=== PATIENT | female | born 1990 | race Caucasian/White ===

== ENCOUNTER 2018-01-30 03:50 | Emergency (ER) | payer OTHER ==
[~2018-01-30] VITALS: Ht 180.3 cm; Wt 88.5 kg
[2018-01-30 04:41] LABS: BASOPHILS # (AUTO) 0.07 x10^3/uL (0-0.1); BASOPHILS % (AUTO) 1 % (0-1); EOSINOPHILS # (AUTO) 0.11 x10^3/uL (0-0.4); EOSINOPHILS % (AUTO) 1 % (1-7); LYMPHOCYTES # (AUTO) 2.75 x10^3/uL (1-3.4); LYMPHOCYTES % (AUTO) 25 % (22-44); MD NO; MEAN CORPUSCULAR HEMOGLOBIN 28.2 pg (27.0-34.8); MEAN CORPUSCULAR HGB CONC 34.3 g/dL (32.4-35.8); MEAN CORPUSCULAR VOLUME 82.4 fL (80-100); MEAN PLATELET VOLUME 6.8 fL (7.4-10.4); MONOCYTES # (AUTO) 0.96 x10^3/uL (0.2-0.8); MONOCYTES % (AUTO) 9 % (2-9); NEUTROPHILS # (AUTO) 7.31 x10^3/uL (1.8-6.8); NEUTROPHILS % (AUTO) 65 % (42-75); PLATELET COUNT 500 x10^3/uL (130-400); RED BLOOD COUNT 4.78 x10^6/uL (3.82-5.3); RED CELL DISTRIBUTION WIDTH 13.4 % (9.6-15.2)
[2018-01-30 04:54] LABS: ALANINE AMINOTRANSFERASE 15 U/L (12-78); ALBUMIN 3.9 g/dL (3.4-5.0); ANION GAP 8 mmol/L (5-15); CALCIUM 8.7 mg/dL (8.5-10.1); CHLORIDE 107 mmol/L (98-107); CREATININE 0.72 mg/dL (0.55-1.02)
[2018-01-30 05:11] LABS: ALKALINE PHOSPHATASE 75 U/L (45-117); BILIRUBIN,TOTAL 0.4 mg/dL (0.2-1.0); TOTAL PROTEIN 7.5 g/dL (6.4-8.2)
[2018-01-30 06:24] LABS: MICROSCOPIC NOT IND
[2018-01-30 06:25] LABS: CULTURE INDICATED? NO
[2018-01-30] MEDS ORDERED: FLUCONAZOLE 100 MG TABLET ONE (07:15)
[2018-01-30] MEDS ORDERED: CEFTRIAXONE 1,000 MG ONE (07:16)
[2018-01-30] MEDS ORDERED: LIDOCAINE-MPF 2%, 2ML ONE (07:19)
[2018-01-30] MEDS ORDERED: CEFTRIAXONE 1,000 MG IM ONE (07:30)
[2018-01-30] MEDS ORDERED: FLUCONAZOLE 100 MG TABLET PO ONE (07:30)
[2018-01-30 07:38] VITALS: BP 120/73
== END 2018-01-30 08:21 | disposition home or self-care (01) ==
LOC: ED 08:17
DX: O26.891 Other specified pregnancy related conditions, first trimester (principal); R10.31 Right lower quadrant pain; Z3A.01 Less than 8 weeks gestation of pregnancy
CPT/HCPCS: 36415; 76801; 80053; 81003; 84702; 85025; 86901; 93005; 96372; 99285; J0696

== ENCOUNTER 2018-02-01 07:18 | Emergency (ER) | payer OTHER ==
[~2018-02-01] VITALS: Ht 180.3 cm; Wt 90.9 kg
[2018-02-01 07:21] VITALS: BP 112/62
[2018-02-01 08:00] LABS: BASOPHILS # (AUTO) 0.03 x10^3/uL (0-0.1); BASOPHILS % (AUTO) 0 % (0-1); EOSINOPHILS % (AUTO) 1 % (1-7); LYMPHOCYTES # (AUTO) 1.72 x10^3/uL (1-3.4); LYMPHOCYTES % (AUTO) 19 % (22-44); MD NO; MEAN CORPUSCULAR HEMOGLOBIN 27.7 pg (27.0-34.8); MEAN CORPUSCULAR HGB CONC 33.5 g/dL (32.4-35.8); MEAN CORPUSCULAR VOLUME 82.5 fL (80-100); MEAN PLATELET VOLUME 6.9 fL (7.4-10.4); MONOCYTES # (AUTO) 0.56 x10^3/uL (0.2-0.8); MONOCYTES % (AUTO) 6 % (2-9); NEUTROPHILS # (AUTO) 6.44 x10^3/uL (1.8-6.8); NEUTROPHILS % (AUTO) 73 % (42-75); PLATELET COUNT 499 x10^3/uL (130-400); RED BLOOD COUNT 4.97 x10^6/uL (3.82-5.3); RED CELL DISTRIBUTION WIDTH 13.5 % (9.6-15.2)
[2018-02-01 08:12] LABS: CULTURE INDICATED? NO; MICROSCOPIC NOT IND
== END 2018-02-01 08:53 | disposition home or self-care (01) ==
LOC: ED 07:34
DX: O26.899 Other specified pregnancy related conditions, unspecified trimester (principal); Z3A.01 Less than 8 weeks gestation of pregnancy; R10.2 Pelvic and perineal pain
CPT/HCPCS: 36415; 81003; 84702; 85025; 99284

== ENCOUNTER 2018-09-26 13:01 | Inpatient (IN) | payer OTHER ==
[~2018-09-26] VITALS: Ht 180.3 cm; Wt 105.9 kg
[2018-09-26] MEDS ORDERED: LACTATED RINGERS 1,000 ML IV SCH ×3 (13:09→14:16)
[2018-09-26] MEDS ORDERED: OXYTOCIN 30U/ 0.9% NaCL 500ML 500 ML IV ONE (13:09)
[2018-09-26] MEDS ORDERED: D5%-LACTATED RINGERS 1,000 ML IV SCH (13:09)
[2018-09-26] MEDS ORDERED: ONDANSETRON 2MG/ML, 2ML IVPush PRN (13:30)
[2018-09-26] MEDS ORDERED: FENTANYL PF 100 MCG/2ML IV PRN (13:30)
[2018-09-26 13:38] VITALS: BP 135/85
[2018-09-26 13:38] LABS: BASOPHILS # (AUTO) 0.05 x10^3/uL (0-0.1); BASOPHILS % (AUTO) 0 % (0-1); EOSINOPHILS # (AUTO) 0.02 x10^3/uL (0-0.4); EOSINOPHILS % (AUTO) 0 % (1-7); LYMPHOCYTES # (AUTO) 1.79 x10^3/uL (1-3.4); LYMPHOCYTES % (AUTO) 14 % (22-44); MD NO; MEAN CORPUSCULAR HEMOGLOBIN 27.2 pg (27.0-34.8); MEAN CORPUSCULAR HGB CONC 32.8 g/dL (32.4-35.8); MEAN CORPUSCULAR VOLUME 82.7 fL (80-100); MEAN PLATELET VOLUME 7.2 fL (7.4-10.4); MONOCYTES # (AUTO) 0.82 x10^3/uL (0.2-0.8); MONOCYTES % (AUTO) 6 % (2-9); NEUTROPHILS % (AUTO) 79 % (42-75); PLATELET COUNT 352 x10^3/uL (130-400); RED BLOOD COUNT 4.39 x10^6/uL (3.82-5.3); RED CELL DISTRIBUTION WIDTH 16.4 % (9.6-15.2)
[2018-09-26] MEDS ORDERED: NEWBORN KIT ONE (13:50)
[2018-09-26] MEDS ORDERED: OXYTOCIN 30U/ 0.9% NaCL 500ML 500 ML ONE ×2 (13:57→20:04)
[2018-09-26] MEDS ORDERED: FENTANYL PF 100 MCG/2ML ONE ×3 (14:04→16:18)
[2018-09-26] MEDS ORDERED: FENTANYL/BUPIV./NS/PF 250 ML EPIDCONT SCH ×3 (14:07→14:16)
[2018-09-26] MEDS: FENTANYL PF 100 MCG/2ML IVPush PRN ×3 (14:09→16:22)
[2018-09-26] MEDS ORDERED: LACTATED RINGERS 1,000 ML IVBOLUS PRN (14:30)
[2018-09-26] MEDS ORDERED: FENTANYL PF 500 MCG, BUPIVACAINE/PF 0.5%, 30ML 62.5 ML in SODIUM CHLORIDE 0.9% 177.5 ML EPIDCONT SCH (14:30)
[2018-09-26] MEDS ORDERED: NALOXONE 0.4 MG/ML, 1ML IVPush PRN ×2 (14:30)
[2018-09-26] MEDS ORDERED: EPHEDRINE 50 MG/ML, 1ML IVPush PRN ×2 (14:30)
[2018-09-26] MEDS: LACTATED RINGERS 1,000 ML IVBOLUS PRN ×2 (14:37→17:49)
[2018-09-26] MEDS ORDERED: LIDOCAINE 1%, 20ML ONE (15:02)
[2018-09-26] MEDS ORDERED: MISOPROSTOL 200 MCG TABLET ONE (15:03)
[2018-09-26] MEDS ORDERED: IBUPROFEN 600 MG TABLET ONE (19:00)
[2018-09-26] MEDS: IBUPROFEN 600 MG TABLET PO PRN (19:08)
[2018-09-26] MEDS: OXYTOCIN 30U/ 0.9% NaCL 500ML 500 ML IV SCH ×2 (20:10→20:13)
[2018-09-26 21:00] VITALS: BP 120/63
[2018-09-26] MEDS ORDERED: OXYcodone IR 5MG TABLET PO PRN (21:00)
[2018-09-26] MEDS ORDERED: OXYcodone/APAP 5/325MG TABLET PO PRN ×2 (21:00)
[2018-09-27 01:00] VITALS: BP 125/72
[2018-09-27] MEDS: IBUPROFEN 600 MG TABLET PO PRN ×4 (01:20→23:10)
[2018-09-27 02:53] LABS: BASOPHILS # (AUTO) 0.04 x10^3/uL (0-0.1); BASOPHILS % (AUTO) 0 % (0-1); EOSINOPHILS % (AUTO) 0 % (1-7); LYMPHOCYTES # (AUTO) 1.32 x10^3/uL (1-3.4); LYMPHOCYTES % (AUTO) 8 % (22-44); MD NO; MEAN CORPUSCULAR HEMOGLOBIN 27.6 pg (27.0-34.8); MEAN CORPUSCULAR HGB CONC 33.2 g/dL (32.4-35.8); MEAN PLATELET VOLUME 7.2 fL (7.4-10.4); MONOCYTES # (AUTO) 1.11 x10^3/uL (0.2-0.8); MONOCYTES % (AUTO) 7 % (2-9); NEUTROPHILS # (AUTO) 14.05 x10^3/uL (1.8-6.8); NEUTROPHILS % (AUTO) 85 % (42-75); PLATELET COUNT 309 x10^3/uL (130-400); RED CELL DISTRIBUTION WIDTH 16.2 % (9.6-15.2)
[2018-09-27 05:15] VITALS: BP 121/81
[2018-09-27] MEDS: OXYTOCIN 30U/ 0.9% NaCL 500ML 500 ML IV SCH ×2 (06:06→06:10)
[2018-09-27] MEDS ORDERED: DOCUSATE 100 MG CAPSULE ONE (07:50)
[2018-09-27] MEDS: PRENATAL VIT/IRON/FA 1 EACH TABLET PO SCH (07:54)
[2018-09-27 08:00] VITALS: BP 117/79
[2018-09-27 12:30] VITALS: BP 136/88
[2018-09-27 16:40] VITALS: BP 116/75
[2018-09-27 20:00] VITALS: BP 118/78
[2018-09-28] MEDS: IBUPROFEN 600 MG TABLET PO PRN ×2 (05:21→11:26)
[2018-09-28 07:23] VITALS: BP 125/81
[2018-09-28] MEDS: PRENATAL VIT/IRON/FA 1 EACH TABLET PO SCH (07:51)
[2018-09-28] MEDS ORDERED: IBUP-1222 PO (12:45)
== END 2018-09-28 15:00 | disposition home or self-care (01) | DRG 807 ==
LOC: LDOP 13:01 → LDIP 13:11 → 2NW 20:35
PROVIDERS: ADMIT Obstetrics & Gynecology; ATTEND Obstetrics & Gynecology
PROC: 10D07Z6 Extraction of Products of Conception, Vacuum, Via Natural or Artificial Opening (ICD-10-PCS; principal; 2018-09-27)
PROC: 0HQ9XZZ Repair Perineum Skin, External Approach (ICD-10-PCS; 2018-09-27)
PROC: 10907ZC Drainage of Amniotic Fluid, Therapeutic from Products of Conception, Via Natural or Artificial Opening (ICD-10-PCS; 2018-09-27)
PROC: 0HQ9XZZ Repair Perineum Skin, External Approach (ICD-10-PCS; 2018-09-27)
DX: O76 Abnormality in fetal heart rate and rhythm complicating labor and delivery (principal); Z37.0 Single live birth; O70.0 First degree perineal laceration during delivery; O75.81 Maternal exhaustion complicating labor and delivery; Z3A.39 39 weeks gestation of pregnancy; Z80.0 Family history of malignant neoplasm of digestive organs; Z80.3 Family history of malignant neoplasm of breast; Z83.3 Family history of diabetes mellitus
CPT/HCPCS: 36415; 82803; 85025; 86850; 86900; G0378; J3010; J3490; J2590; J7050; J7120

== ENCOUNTER 2020-05-18 13:48 | Emergency (ER) | payer OTHER ==
[~2020-05-18] VITALS: Ht 180.3 cm; Wt 88.0 kg
[~2020-05-18 13:48] MED LIST: IBUP-1222 PO
[2020-05-18] MEDS ORDERED: ONDANSETRON 2MG/ML, 2ML ONE (14:28)
[2020-05-18] MEDS ORDERED: SODIUM CHLORIDE FLUSH 10ML SYR IVF ONE (14:30)
[2020-05-18] MEDS ORDERED: SODIUM CHLORIDE 0.9% 1,000ML IVBOLUS ONE (14:30)
[2020-05-18] MEDS ORDERED: ONDANSETRON 2MG/ML, 2ML IVPush ONE (14:30)
--- NOTE | 2020-05-18 14:39 | NUR ---
PT PLACED ON ALL ROOM MONITORING DEVICES. IV PLACED, LABS DRAWN WITH START. WARM BLANKETS PROVIDED, CALL LIGHT WITHIN REACH. MEDS AND IVF PER ERP ORDER. PT TO US.
[2020-05-18 14:43] LABS: BASOPHILS % (AUTO) 0 % (0-1); EOSINOPHILS % (AUTO) 0 % (1-7); LYMPHOCYTES % (AUTO) 4 % (22-44); MEAN CORPUSCULAR HEMOGLOBIN 28.7 pg (27.0-34.8); MEAN CORPUSCULAR HGB CONC 33.6 g/dL (32.4-35.8); MEAN PLATELET VOLUME 6.9 fL (7.4-10.4); MONOCYTES % (AUTO) 6 % (2-9); NEUTROPHILS % (AUTO) 90 % (42-75); PLATELET COUNT 418 x10^3/uL (130-400); RED BLOOD COUNT 5.02 x10^6/uL (3.82-5.3); RED CELL DISTRIBUTION WIDTH 12.9 % (9.6-15.2)
[2020-05-18 14:45] LABS: MD NO
[2020-05-18 14:50] LABS: ALBUMIN 4.2 g/dL (3.4-5.0); ANION GAP 8 mmol/L (5-15); CALCIUM 8.6 mg/dL (8.5-10.1); CHLORIDE 106 mmol/L (98-107)
[2020-05-18 14:53] LABS: CREATININE 0.87 mg/dL (0.55-1.02)
[2020-05-18 14:54] LABS: ALANINE AMINOTRANSFERASE 14 U/L (12-78); ALKALINE PHOSPHATASE 78 U/L (45-117); BILIRUBIN,TOTAL 0.7 mg/dL (0.2-1.0)
[2020-05-18] MEDS ORDERED: PREN1TAB10 PO (14:54)
--- NOTE | 2020-05-18 15:15 | NUR ---
PT BACK FROM US, URINE COLLECTED/SENT TO LAB.
[2020-05-18 15:49] LABS: MICROSCOPIC NOT IND
--- NOTE | 2020-05-18 15:52 | NUR ---
ALL RESULTS BACK,PT FOR RECHECK. VSS/UPDATED IN COMPUTER. PT REQUESTING WATER/PROVIDED, NO N/V AT THIS TIME.
[2020-05-18 16:50] VITALS: BP 102/64
== END 2020-05-18 16:54 | disposition home or self-care (01) ==
LOC: ED 16:30
DX: O26.891 Other specified pregnancy related conditions, first trimester (principal); R10.2 Pelvic and perineal pain; K52.9 Noninfective gastroenteritis and colitis, unspecified; R11.2 Nausea with vomiting, unspecified; R10.13 Epigastric pain; Z3A.01 Less than 8 weeks gestation of pregnancy
CPT/HCPCS: 36415; 76801; 80053; 81003; 83690; 84702; 85025; 96374; 99284; J2405; J7030

== ENCOUNTER 2021-01-05 16:09 | Inpatient (IN) | payer OTHER ==
[~2021-01-05] VITALS: Ht 180.3 cm; Wt 104.0 kg
[~2021-01-05 16:09] MED LIST changes: +PREN1TAB10 PO
[2021-01-05] MEDS ORDERED: FENTANYL PF 100 MCG/2ML ONE (16:27)
[2021-01-05] MEDS ORDERED: D5%-LACTATED RINGERS 1,000 ML IV SCH (16:30)
[2021-01-05] MEDS ORDERED: TERBUTALINE 1 MG/ML, 1ML SQ PRN (16:30)
[2021-01-05] MEDS ORDERED: LACTATED RINGERS 1,000 ML IV SCH ×2 (16:30→18:00)
[2021-01-05] MEDS ORDERED: METOCLOPRAMIDE 5 MG/ML, 2ML IVPush PRN (16:30)
[2021-01-05] MEDS ORDERED: TERBUTALINE 1 MG/ML, 1ML IVPush PRN (16:30)
[2021-01-05] MEDS ORDERED: FENTANYL PF 100 MCG/2ML IVPush PRN (16:30)
[2021-01-05] MEDS ORDERED: OXYTOCIN 30U/ 0.9% NaCL 500ML 500 ML IV PRN (16:30)
[2021-01-05] MEDS ORDERED: CALCIUM CARBONATE 500 MG TAB.CHEW PO PRN (16:30)
[2021-01-05] MEDS ORDERED: SODIUM CITRATE/CITRIC ACID 30 ML UDC PO PRN (16:30)
[2021-01-05] MEDS ORDERED: ALUMINUM/MAG/SIMETHICONE 30 ML UDC PO PRN (16:30)
[2021-01-05] MEDS ORDERED: OXYTOCIN 30U/ 0.9% NaCL 500ML 500 ML IV ONE (16:30)
[2021-01-05] MEDS ORDERED: ONDANSETRON 2MG/ML, 2ML IVPush PRN (16:30)
[2021-01-05] MEDS ORDERED: LIDOCAINE 1%, 20ML ONE (16:42)
[2021-01-05] MEDS ORDERED: MISOPROSTOL 200 MCG TABLET ONE (16:42)
[2021-01-05] MEDS ORDERED: NEWBORN KIT ONE (16:42)
[2021-01-05 16:54] LABS: BASOPHILS % (AUTO) 0 % (0-1); EOSINOPHILS % (AUTO) 1 % (1-7); LYMPHOCYTES % (AUTO) 11 % (22-44); MEAN CORPUSCULAR HEMOGLOBIN 25.5 pg (27.0-34.8); MEAN CORPUSCULAR HGB CONC 32.7 g/dL (32.4-35.8); MEAN PLATELET VOLUME 7.1 fL (7.4-10.4); MONOCYTES % (AUTO) 8 % (2-9); NEUTROPHILS % (AUTO) 80 % (42-75); PLATELET COUNT 374 x10^3/uL (130-400); RED BLOOD COUNT 4.35 x10^6/uL (3.82-5.3); RED CELL DISTRIBUTION WIDTH 14.2 % (9.6-15.2)
[2021-01-05] MEDS ORDERED: FENTANYL/BUPIV./NS/PF 250 ML EPIDCONT ONE (17:15)
[2021-01-05] MEDS ORDERED: BUPIVACAINE 0.25% ONE (17:15)
[2021-01-05] MEDS ORDERED: EPHEDRINE 50 MG/ML, 1ML IVPush PRN (17:30)
[2021-01-05] MEDS ORDERED: NALOXONE 0.4 MG/ML, 1ML IVPush PRN (17:30)
[2021-01-05] MEDS ORDERED: FENTANYL/BUPIV./NS/PF 250 ML EPIDCONT SCH (17:30)
[2021-01-05] MEDS ORDERED: LACTATED RINGERS 1,000 ML IVBOLUS PRN (18:00)
[2021-01-05] MEDS ORDERED: IBUPROFEN 600 MG TABLET ONE (22:07)
[2021-01-05] MEDS: IBUPROFEN 600 MG TABLET PO PRN (22:09)
[2021-01-05] MEDS: OXYTOCIN 30U/ 0.9% NaCL 500ML 500 ML IV SCH (22:13)
[2021-01-05] MEDS ORDERED: OXYcodone/APAP 5/325MG TABLET PO PRN ×2 (22:30)
[2021-01-05] MEDS ORDERED: MISOPROSTOL 200 MCG TABLET PR PRN (22:30)
[2021-01-05] MEDS ORDERED: ACETAMINOPHEN 325 MG TABLET PO PRN ×2 (22:30)
[2021-01-05] MEDS ORDERED: ONDANSETRON 2MG/ML, 2ML IV PRN (22:30)
[2021-01-05] MEDS ORDERED: DOCUSATE 100 MG CAPSULE PO PRN (22:30)
[2021-01-06 00:45] VITALS: BP 115/68
[2021-01-06 04:50] VITALS: BP 113/71
[2021-01-06] MEDS: IBUPROFEN 600 MG TABLET PO PRN ×3 (05:11→19:59)
[2021-01-06 07:31] LABS: BASOPHILS % (AUTO) 0 % (0-1); EOSINOPHILS % (AUTO) 0 % (1-7); LYMPHOCYTES % (AUTO) 9 % (22-44); MEAN CORPUSCULAR HEMOGLOBIN 25.3 pg (27.0-34.8); MEAN CORPUSCULAR HGB CONC 32.6 g/dL (32.4-35.8); MEAN PLATELET VOLUME 6.7 fL (7.4-10.4); MONOCYTES % (AUTO) 6 % (2-9); NEUTROPHILS % (AUTO) 84 % (42-75); PLATELET COUNT 280 x10^3/uL (130-400); RED BLOOD COUNT 4.05 x10^6/uL (3.82-5.3); RED CELL DISTRIBUTION WIDTH 14.4 % (9.6-15.2)
[2021-01-06] MEDS: OXYTOCIN 30U/ 0.9% NaCL 500ML 500 ML IV SCH ×2 (08:30→17:28)
[2021-01-06 08:45] VITALS: BP 116/76
[2021-01-06] MEDS: PRENATAL VIT/IRON/FA 1 EACH TABLET PO SCH (09:00)
[2021-01-06 12:15] VITALS: BP 122/83
[2021-01-06] MEDS: SIMETHICONE 80 MG CHEW TAB PO PRN ×2 (13:20→19:59)
[2021-01-06 16:10] VITALS: BP 126/75
[2021-01-06 19:45] VITALS: BP 130/76
[2021-01-07 00:30] VITALS: BP 113/73
[2021-01-07] MEDS: IBUPROFEN 600 MG TABLET PO PRN ×2 (02:09→09:32)
[2021-01-07] MEDS: SIMETHICONE 80 MG CHEW TAB PO PRN (02:10)
[2021-01-07] MEDS: OXYTOCIN 30U/ 0.9% NaCL 500ML 500 ML IV SCH (04:30)
[2021-01-07 08:10] VITALS: BP 118/80
[2021-01-07] MEDS: PRENATAL VIT/IRON/FA 1 EACH TABLET PO SCH (09:32)
[2021-01-07] MEDS ORDERED: IBUP-1223 PO (15:15)
== END 2021-01-07 17:15 | disposition home or self-care (01) | DRG 807 ==
LOC: LDOP 16:09 → LDIP 16:18 → 2NW 01-06 00:35
PROVIDERS: ADMIT Obstetrics & Gynecology; ATTEND Obstetrics & Gynecology
PROC: 10E0XZZ Delivery of Products of Conception, External Approach (ICD-10-PCS; principal; 2021-01-05)
PROC: 10H07YZ Insertion of Other Device into Products of Conception, Via Natural or Artificial Opening (ICD-10-PCS; 2021-01-05)
PROC: 10907ZC Drainage of Amniotic Fluid, Therapeutic from Products of Conception, Via Natural or Artificial Opening (ICD-10-PCS; 2021-01-05)
PROC: 3E0R3BZ Introduction of Anesthetic Agent into Spinal Canal, Percutaneous Approach (ICD-10-PCS; 2021-01-05)
PROC: 00HU33Z Insertion of Infusion Device into Spinal Canal, Percutaneous Approach (ICD-10-PCS; 2021-01-05)
DX: O76 Abnormality in fetal heart rate and rhythm complicating labor and delivery (principal); Z37.0 Single live birth; O40.3XX0 Polyhydramnios, third trimester, not applicable or unspecified; Z20.822 Contact with and (suspected) exposure to COVID-19; I95.9 Hypotension, unspecified; Z79.899 Other long term (current) drug therapy; Z79.891 Long term (current) use of opiate analgesic; Z79.01 Long term (current) use of anticoagulants; Z3A.39 39 weeks gestation of pregnancy
CPT/HCPCS: 36415; 85025; 86592; 86850; 86900; 87635; G0378; J3010; J2590